=== PATIENT | male | born 1995 | race Caucasian/White ===

== ENCOUNTER 2016-12-20 15:35 | Emergency (ER) | payer MEDICAID ==
[~2016-12-20] VITALS: Ht 180.3 cm; Wt 59.0 kg
[2016-12-20 15:46] VITALS: BP_SYST 133
--- NOTE | 2016-12-20 15:50 | NUR ---
Patient triaged and placed in waiting room. VSS and patient appears in no acute distress at this time. Accompanied by mother, awaiting available bed, and MD notified of need for MSE.
--- NOTE | 2016-12-20 16:31 | NUR ---
Pt was brought to bed 1 with complaints of pain to left ankle since Saturday, pt states he does not how it happened but he skateboards. Pt is able to ambulate but with a limp. No other injuries/complaints per pt or noted. There is bruising to ankle and heel
--- NOTE | 2016-12-20 16:33 | NUR ---
ER at bedside examining patient.
[2016-12-20 16:47] VITALS: BP_SYST 126
--- NOTE | 2016-12-20 16:47 | NUR ---
Patient given written and verbal discharge instructions and verbalizes understanding. ER MD discussed with patient the results and treatment provided. Patient in stable condition. ID arm band removed. Rx of Tramadol, Naproxen given. Patient educated on pain management and to follow up with PMD. Pain Scale 3. Dr. Mclain is aware, pt tolerated pain level, prescription was given for home. Opportunity for questions provided and answered. Addendum: 12/20/16 at 1658 by [email or web address] Pt states will take medication at home.
== END 2016-12-20 16:47 | disposition home or self-care (01) ==
LOC: SED 15:35
DX: S93.602A Unspecified sprain of left foot, initial encounter (principal); R03.0 Elevated blood-pressure reading, without diagnosis of hypertension; X58.XXXA Exposure to other specified factors, initial encounter; Y93.89 Activity, other specified; Y92.89 Other specified places as the place of occurrence of the external cause; Y99.8 Other external cause status
CPT/HCPCS: 99284